=== PATIENT | female | born 1950 | race Two or more races ===

== ENCOUNTER 2023-09-19 09:31 | Emergency (ER) | payer OTHER ==
[~2023-09-19] VITALS: Ht 162.6 cm; Wt 65.8 kg
[2023-09-19] MEDS ORDERED: TRADJENTA5 MG PO (09:57)
[2023-09-19] MEDS ORDERED: LOSARTAN POTASSI1 GM PO (09:58)
[2023-09-19] MEDS ORDERED: GLIPIZIDE XL5 MG PO (09:58)
[2023-09-19] MEDS ORDERED: ONDANSETRON HCL 2 MG/ML VIAL IM ONE (11:30)
[2023-09-19 11:49] LABS: HEMATOCRIT 35.4 % (36.0-45.00); HEMOGLOBIN 11.9 g/dL (12.0-15.00); MEAN CELL VOLUME 83.6 fL (80.00-100.00); MEAN CORPUSCULAR HGB CONC 33.5 g/dl (32.0-36.0); PLATELET COUNT 309 K/uL (150-450); RED BLOOD COUNT 4.24 M/uL (4.00-6.00); RED CELL DISTRIBUTION WIDTH 13.3 % (11.5-14.5)
[2023-09-19 12:16] LABS: PH,URINE 7.5 (5.0-8.0); URINE APPEARANCE Cloudy; URINE BILIRRUBIN Negative (NEGATIVE); URINE BLOOD Negative; URINE COLOR Yellow; URINE GLUCOSE Negative (NEGATIVE); URINE LEUKOCYTE Large; URINE NITRATE Negative; URINE PROTEIN 30 (NEGATIVE)
[2023-09-19 12:20] LABS: URINE BACTERIA 112.1 uL (0.0-1933); URINE EPITHELIAL CELLS 9.4 uL (0.0-38.8); URINE RBC 8.9 uL (0.0-20.8); URINE WBC 590.1 uL (0.0-23.2)
[2023-09-19 12:36] LABS: CALCIUM 9.9 mg/dL (8.5-10.1); CREATININE SERUM 1.11 mg/dL (0.55-1.02); GFR 48.18; POTASSIUM 4.17 mEq/L (3.5-5.1)
== END 2023-09-19 14:23 ==
LOC: ER 09:31
PROVIDERS: General Practice
DX: D64.9 Anemia, unspecified (principal); Z20.822 Contact with and (suspected) exposure to COVID-19